=== PATIENT | female | born 1955 | race Hispanic/Latino ===

== ENCOUNTER 2017-08-15 18:27 | Emergency (ER) | payer SELFPAY ==
[2017-08-15] MEDS ORDERED: DEXAMETHASONE SOD PHOSPHATE 10MG/ML 1ML VIAL ONE (18:57)
== END 2017-08-15 19:27 | disposition home or self-care (01) ==
LOC: EDH 18:27
DX: T78.49XA Other allergy, initial encounter (principal); E78.5 Hyperlipidemia, unspecified; E11.9 Type 2 diabetes mellitus without complications; Z90.710 Acquired absence of both cervix and uterus; Z90.49 Acquired absence of other specified parts of digestive tract; Z72.0 Tobacco use; X58.XXXA Exposure to other specified factors, initial encounter
CPT/HCPCS: 96372; 99283; J1100

== ENCOUNTER 2023-10-19 10:39 | Emergency (ER) | payer OTHER ==
[~2023-10-19] VITALS: Ht 157.5 cm; Wt 58.5 kg
[2023-10-19] MEDS: LIDOCAINE HCL 2% VISCOUS 15 ML UDCUP PO ONE (13:11)
[2023-10-19] MEDS: FLUCONAZOLE 100 MG TAB PO ONE (13:12)
[2023-10-19] MEDS: KETOROLAC 60 MG VIAL (30MG/ML) IM ONE (13:12)
[2023-10-19 13:25] VITALS: BP 116/65; PULSE 72; RESP 16; O2SAT 99
== END 2023-10-19 13:28 | disposition home or self-care (01) ==
LOC: EDH 10:39
DX: S00.522A Blister (nonthermal) of oral cavity, initial encounter (principal); I10 Essential (primary) hypertension; E11.9 Type 2 diabetes mellitus without complications; E78.00 Pure hypercholesterolemia, unspecified; Z90.49 Acquired absence of other specified parts of digestive tract; Z90.89 Acquired absence of other organs; Z90.710 Acquired absence of both cervix and uterus; Z98.890 Other specified postprocedural states; X58.XXXA Exposure to other specified factors, initial encounter; Y93.89 Activity, other specified; Y92.89 Other specified places as the place of occurrence of the external cause; Y99.8 Other external cause status
CPT/HCPCS: 99283; 96372; J1885

== ENCOUNTER 2024-06-01 20:57 | Emergency (ER) | payer OTHER ==
[~2024-06-01] VITALS: Ht 157.5 cm; Wt 61.7 kg
[2024-06-01] MEDS: metoCLOPRAmide 10 MG/2 ML VIAL IVP ONE (22:27)
[2024-06-01] MEDS: 0.9%NACL 1000ML 1,000 ML IV ONE (22:27)
[2024-06-01] MEDS: DiphenhydrAMINE HCL 50 MG/ML VIAL IV ONE (22:27)
[2024-06-01] MEDS: acetaMINOPHEN 500 MG TABLET PO ONE (22:27)
--- NOTE | 2024-06-01 22:45 | HMCIMG ---
CT HEAD/BRAIN W/O CONTRAST HISTORY: Headaches COMPARISON: None TECHNIQUE: Multiple sequential axial images of the head were obtained from the base of the skull through vertex. Patient was not given contrast through intravenous route. FINDINGS: The ventricles and extraventricular CSF spaces are nondilated for patient's age. There is no midline shift, mass effect or herniation. No acute intracranial bleed is seen. Visualized portion of the paranasal sinuses are grossly within normal limits. IMPRESSION: 1. No acute intracranial bleed is seen. CT was performed with one or more following dose reduction techniques: automated exposure control, adjustment of the mA and kv according to patient's size, or use of a iterative reconstruction technique.
[2024-06-01 22:49] LABS: BASOPHILS # (AUTO) 0.07 K/uL (0.00-0.20); BASOPHILS % (AUTO) 0.9 % (0.0-5.0); EOSINOPHILS # (AUTO) 0.06 K/uL (0.00-0.70); EOSINOPHILS % (AUTO) 0.7 % (0.0-8.0); IMMATURE GRANULOCYTE ABSOLUTE 0.07 K/uL (0-1); LYMPHOCYTES # (AUTO) 1.7 K/uL (1.0-4.8); LYMPHOCYTES % (AUTO) 21.5 % (21.0-51.0); MEAN CORPUSCULAR HEMOGLOBIN 28.1 pg (27.0-33.0); MEAN CORPUSCULAR HGB CONC 33.5 g/dL (32.0-36.0); MONOCYTES # (AUTO) 0.5 K/uL (0.1-1.0); MONOCYTES % (AUTO) 5.7 % (3.0-13.0); NEUTROPHILS # (AUTO) 5.7 K/uL (1.8-7.7); NEUTROPHILS % (AUTO) 70.3 % (40.0-77.0); PLATELET COUNT (AUTO) 201 K/uL (130-400); RED BLOOD CELL COUNT(AUTO) 4.05 MIL/uL (4.00-5.50)
[2024-06-01 22:58] LABS: CREATININE 0.6 mg/dL (0.5-1.0); POTASSIUM 3.4 mmol/L (3.5-5.1)
--- NOTE | 2024-06-01 23:56 | ERN ---
General Chief Complaint: Headache Stated Complaint: VOMITTING,HEAD PAIN Time Seen by MD: 22:14 Time Seen by Midlevel: 22:14 Source: patient History of Present Illness Initial Comments Patient is a 69-year-old female with a past medical history of hyperlipidemia, hypertension, and type 2 diabetes presenting to the emergency department with a left-sided occipital headache that started prior to arrival. Patient states she had woken up from a nap when she noticed the headache. This was followed by dry heaving and one episode of vomiting while in route to the ER. Denies any focal weakness, numbness, tingling, facial droop, or any other symptoms at this time. She does report starting Ozempic yesterday. Denies any fall or direct injury to the head. Allergies: Coded Allergies: No Known Allergies (Unverified Allergy, Unknown, 10/19/23) Past Medical History Past Medical History: Diabetes-Type II, Hypertension Past Surgical History: None Surgical History Other: EAR ROS Dictation CONSTITUTIONAL: Negative except for HPI HEAD/FACE: Negative except for HPI EENT: Negative except for HPI RESPIRATORY: Negative except for HPI GASTROINTESTINAL/ABDOMINAL: Negative except for HPI GENITOURINARY: Negative except for HPI MUSCULOSKELETAL: Negative except for HPI INTEGUMENTARY: Negative except for HPI NEUROLOGICAL/PSYCH: Negative except for HPI HEMATOLOGIC/LYMPHATIC: Negative except for HPI All Systems Negative, Except as noted above. 13 point review of systems assessed and all negative except for above. Physical Exam Physical Exam Dictation Vital Signs reviewed General Appearance: Alert, oriented x 3, no acute distress, well developed, nourished. Head and Face: non-traumatic. Eyes: PERRL, pink conjunctivas, eyelid no trauma, anterior chamber with arcus senilis. Ears: Pinnas intact and no signs of trauma or erythema ear canals clear and no discharge TM no erythema Nose: No discharge, no bleeding. Oropharynx: Mouth normal, tongue pink, pharynx clear,no erythema, tonsils no exudates, no abscesses noted, mucous membrane moist Neck: Supple, non-tender, no thyromegaly, no masses, no JVD, no bruits Breast:Deferred Chest:No tenderness, no crepitus, no paradoxical movement, no retractions Lungs:Clear, well-ventilated, symmetric, no rales, no wheezing, no rhonchi, no stridor, good breath sounds bilaterally Heart: Regular rate, regular rhythm, no murmur, no gallops Vascular: no peripheral edema, Abdomen: Soft, positive bowel sounds, nondistended, no guarding, nontender, no rebound, no masses no hepatomegaly, no splenomegaly, no Martinez's sign, no hernias. Rectal: Deferred Genital: Deferred Neurological: Normal speech, motor function intact, sensory function intact Musculoskeletal: Neck nontender, full range of motion, back nontender, full range of motion, Extremities: nontender, full range of motion Skin: Color pink, dry, no turgor, no rash, no lacerations, no abrasions, no contusions. Lymphatic: Deferred Results Laboratory and Microbiology Lab and Micro Result Laboratory Tests Test 06/01/24 22:38 White Blood Count 8.0 K/uL (4.8-10.8) Red Blood Count 4.05 MIL/uL (4.00-5.50) Hemoglobin 11.4 g/dL (12.0-16.0) L Hematocrit 34.0 % (36-48) L Mean Corpuscular Volume 84.0 fL (79-99) Mean Corpuscular Hemoglobin 28.1 pg (27.0-33.0) Mean Corpuscular Hemoglobin Concent 33.5 g/dL (32.0-36.0) Red Cell Distribution Width 13.0 % (11.0-15.5) Platelet Count 201 K/uL (130-400) Mean Platelet Volume 9.5 fL (7.5-10.5) Immature Granulocyte % (Auto) 0.9 % (0-1) Neutrophils (%) (Auto) 70.3 % (40.0-77.0) Lymphocytes (%) (Auto) 21.5 % (21.0-51.0) Monocytes (%) (Auto) 5.7 % (3.0-13.0) Eosinophils (%) (Auto) 0.7 % (0.0-8.0) Basophils (%) (Auto) 0.9 % (0.0-5.0) Neutrophils # (Auto) 5.7 K/uL (1.8-7.7) Lymphocytes # (Auto) 1.7 K/uL (1.0-4.8) Monocytes # (Auto) 0.5 K/uL (0.1-1.0) Eosinophils # (Auto) 0.06 K/uL (0.00-0.70) Basophils # (Auto) 0.07 K/uL (0.00-0.20) Absolute Immature Granulocyte (auto 0.07 K/uL (0-1) Nucleated Red Blood Cells 0.0 % (0.0-0.19) Sodium Level 138 mmol/L (136-145) Potassium Level 3.4 mmol/L (3.5-5.1) L Chloride Level 102 mmol/L (101-111) Carbon Dioxide Level 29 mmol/L (21-32) Blood Urea Nitrogen 13 mg/dL (7-18) Creatinine 0.6 mg/dL (0.5-1.0) Glomerular Filtration Rate Calc 97 mL/min (>90) Random Glucose 160 mg/dL (70-105) H Total Calcium 8.6 mg/dL (8.5-10.1) Labs Reviewed?: Yes MDM MDM: Patient is a 69-year-old female with a past medical history of hyperlipidemia, hypertension, and type 2 diabetes presenting to the emergency department with a left-sided occipital headache that started prior to arrival. Patient states she had woken up from a nap when she noticed the headache. This was followed by dry heaving and one episode of vomiting while in route to the ER. Denies any focal weakness, numbness, tingling, facial droop, or any other symptoms at this time. She does report starting Ozempic yesterday. Denies any fall or direct injury to the head. On physical examination the patient is in no acute distress. Her neurological examination is unremarkable. GCS 15. Patient was ambulatory without assistance and with a normal gait. No facial droop noted. Cranial nerves are intact. Given her persistent headache patient was started on a migraine cocktail and a CT scan of the head was ordered. CT scan does not show any intracranial abnormalities. Her CBC and chemistries unremarkable. CBC shows no leukocytosis or thrombocytopenia. Chemistries reveal a normal creatinine and electrolytes. On repeat examination the patient does report feeling improved. Her repeat neurological examination has remained unchanged. We will give a dose of Toradol and will discharged home with strict return precautions. The patient is agreeable with this plan and all questions have been answered. Differential diagnosis: Migraine headache, muscle strain, intracranial bleed There are no social concerns with this patient. Prescription drug management Prescriptions will include: None Medical management and examination interpretation discussions were had by me with other qualified healthcare professionals as indicated for the patient's care. ED Course Orders Procedure Category Date Status Time Cbc With Differential LAB 06/01/24 Complete 22:08 Basic Metabolic Panel LAB 06/01/24 Complete 22:08 Acetaminophen 500mg PHA 06/01/24 Complete Tab (Tylenol 500mg T 22:30 Metoclopramide 10 PHA 06/01/24 Complete Mg/2 Ml Vial (Reglan 1 22:30 Diphenhydramine Hcl PHA 06/01/24 Complete (Benadryl Inj) 22:30 Ct Head/Brain W/O CT 06/01/24 Resulted Contrast 22:08 0.9%Nacl 1000ml (Ns PHA 06/01/24 Complete 1000ml) 22:30 Ketorolac PHA 06/02/24 In Process Tromethamine 15mg/Ml 00:00 Current Medications Medications (Trade) Dose Ordered Sig/Tj Route PRN Reason Start Time Stop Time Status Last Admin Dose Admin Acetaminophen (TYLenol 500MG TAB) 1,000 mg ONCE ONCE PO 06/01/24 22:30 06/01/24 22:31 DC 06/01/24 22:27 Diphenhydramine HCl (BENAdryl INJ) 25 mg ONCE ONCE IV 06/01/24 22:30 06/01/24 22:31 DC 06/01/24 22:27 Ketorolac Tromethamine (toRADol) 15 mg ONCE ONCE IV 06/02/24 00:00 06/02/24 00:01 Metoclopramide HCl (regLAN 10MG IV) 10 mg ONCE ONCE IVP 06/01/24 22:30 06/01/24 22:31 DC 06/01/24 22:27 Sodium Chloride 1,000 ml @ 0 mls/hr ONCE ONCE IV 06/01/24 22:30 06/01/24 22:31 DC 06/01/24 22:27 Vital Signs Date Time Temp Pulse Resp B/P (MAP) Pulse Ox O2 Delivery O2 Flow Rate FiO2 06/01/24 21:42 98.1 72 20 153/84 99 Room Air* 0 21 06/01/24 21:26 98.1 72 20 153/84 99 Room Air [place] [address] [address] IMAGING REPORT Signed PATIENT: TOMI LUNA MR#: [id number] : 1955 SEX: F AGE: 69 LOCATION: ED ORDER 09 STATUS: [facility] ER REPORT#: [id number] SERVICE 07 REASON: headache, nausea ORDERING PHYSICIAN: SHAHIDA ESTRADA PROCEDURE: HEAD WO - CT HEAD/BRAIN W/O CONTRAST CT HEAD/BRAIN W/O CONTRAST HISTORY: Headaches COMPARISON: None TECHNIQUE: Multiple sequential axial images of the head were obtained from the base of the skull through vertex. Patient was not given contrast through intravenous route. FINDINGS: The ventricles and extraventricular CSF spaces are nondilated for patient's age. There is no midline shift, mass effect or herniation. No acute intracranial bleed is seen. Visualized portion of the paranasal sinuses are grossly within normal limits. IMPRESSION: 1. No acute intracranial bleed is seen. CT was performed with one or more following dose reduction techniques: automated exposure control, adjustment of the mA and kv according to patient's size, or use of a iterative reconstruction technique. DICTATED BY: VELIA WINTER MD DATE: 06/01/242235 ELECTRONICALLY SIGNED BY: VELIA WINTER MD DATE: 06/01/242244 DX & DISP Disposition: Discharge Departure Impression: Primary Impression: Headache, unspecified Condition: Stable Additional Instructions: Your blood work today is unremarkable. Your CT scan of the head is normal. Please follow up with your primary care doctor in 2-3 days for repeat evaluation. Return to the ER for any new or worsening symptoms Referrals: JACEK AG MD (PCP) Time of Disposition: 23:56 I have reviewed the case, and I agree with, Diagnosis and Plan I performed the substantive portion of the visit. I have reviewed and personally made and approve the management plan that is documented in the note by myself or the ALLIE. I acknowledge for responsibility for the patient's management plan. JACEK CHRISTINE Jun 01, 2024 23:56
[2024-06-02] MEDS: ketOROlac 15MG/ML VIAL (15MG/ML) IV ONE (00:11)
[2024-06-02 00:34] VITALS: BP 140/79; PULSE 70; RESP 18; TEMP 98.1; O2SAT 99
== END 2024-06-02 00:35 | disposition home or self-care (01) ==
LOC: EDH 20:57
DX: R51.9 Headache, unspecified (principal); R11.2 Nausea with vomiting, unspecified; E11.9 Type 2 diabetes mellitus without complications; I10 Essential (primary) hypertension; E78.5 Hyperlipidemia, unspecified
CPT/HCPCS: 99285; 96374; 70450; 96361; 96375 ×2; 80048; 85025; 36415; J1200; J7030; J2765; J1885

== ENCOUNTER 2024-12-30 20:31 | Emergency (ER) | payer OTHER ==
[~2024-12-30] VITALS: Ht 157.5 cm; Wt 63.5 kg
--- NOTE | 2024-12-30 21:06 | ERN ---
ED Note History of Present Illness Stated Complaint: C/O PAIN TO BUTTOCKS AFTER FALL Chief Complaint: Mechanical Fall Time Seen by MD: 20:36 Time Seen by Midlevel: 20:40 Dictation: 69-year-old female with a history of hypertension coming in complaining of lower back pain status post ground level fall. Patient states she slipped in his added on her buttocks. Denies any head injury. No LOC. No blood thinners. Allergies: Coded Allergies: No Known Allergies (Unverified Allergy, Unknown, 10/19/23) Past Medical History Past Medical History: Diabetes-Type II, High Cholesterol, Hypertension Surgical History: None Surgical History Other: EAR Review of System Dictation Constitutional: Negative for fever,chills, and weight loss Eyes: Negative for injury, pain,redness, and discharge ENT: Negative for injury,pain or swelling Cardiovascular: Negative for chest pain, palpitations, and edema Respiratory: Negative for shortness of breath, cough, and wheezing, Abdomen/GI: Negative for abdominal pain, nausea, vomiting, diarrhea, and constipation Back: Complaining of lower back pain : Negative for injury, bleeding and discharge MS/Extremity: Negative for injury and deformity Skin: Negative for rash, and discoloration Neuro: Negative for headache, weakness, numbness, tingling, and seizure Psych: Negative for suicide ideation, homicidal ideation, and hallucinations Review of Systems: was completed Initial Vital Sign VS Vital Signs Date Time Temp Pulse Resp B/P (MAP) Pulse Ox O2 Delivery O2 Flow Rate FiO2 12/30/24 20:33 98.1 69 20 112/49 99 Room Air 12/30/24 21:08 0 21 Physical Exam Dictation General: awake, alert, NAD Head/Face: Normocephalic, atraumatic Eyes: PERRL, EOMI, vision at baseline ENT: oral cavity clear, TMs clear, no signs of infection Neck: Trachea midline, supple, no nuchal rigidity Cardiovascular: RRR, normal S1/S2, No MRGs, no JVD Respiratory: CTAB, no respiratory distress, No rales or wheezes Abdomen: Soft, non-tender, non-distended, normal bowel sounds, no guarding or rebound. Skin: Warm, dry, normal turgor, no rash MS/Extremity: Pulses equal, no cyanosis, neurovascular intact, FROM pain on palpation to the lower back along the L-spine Neuro: COAx4, GCS 15, strength 5/5, CN 2-12 intact, normal cerebellar exam, normal gait, Psych: Normal behavior, mood, and affect normal ED Course ED Course Orders Procedure Category Date Status Time Lumbar Spine 2-3vws RAD 12/30/24 Taken 20:39 Sacrum/Coccyx 2+Vws RAD 12/30/24 Taken 20:39 Pelvis 1-2vws RAD 12/30/24 Taken 20:39 Tramadol Hcl (Ultram) PHA 12/30/24 Complete 20:40 Current Medications Medications (Trade) Dose Ordered Sig/Tj Route PRN Reason Start Time Stop Time Status Last Admin Dose Admin Tramadol HCl (UltRAM) 50 mg ONCE STAT PO 12/30/24 20:40 12/30/24 20:47 DC 12/30/24 21:28 Vital Signs Date Time Temp Pulse Resp B/P (MAP) Pulse Ox O2 Delivery O2 Flow Rate FiO2 12/30/24 21:08 98.1 69 20 112/49 99 Room Air* 0 21 12/30/24 20:33 98.1 69 20 112/49 99 Room Air Medical Decision Making MDM MDM: 69-year-old female with a history of hypertension coming in complaining of lower back pain status post ground level fall. Patient states she slipped in his landed on her buttocks. Denies any head injury. No LOC. No blood thinners. Denies any numbness, tingling, weakness, incontinence, urinary retention. X- rays were reviewed by myself and ER MD. No acute findings only arthritic changes. Patient will be discharged to follow up outpatient. Educated patient that she can take Tylenol [id number] or ibuprofen for pain control. Educated on signs and symptoms of when to return back to the ER. Patient verbalized understanding, answered all questions. Differential diagnosis: L-spine injury, compression fracture, muscle sprain Rationale: Tests considered and ordered secondary to shared decision making include: Previous outside records reviewed: Old ER visits. Risk of complication and/or morbidity or mortality of patient management: None Medications-Per medication reconciliation Need for hospitalization: Patient does not meet criteria for hospitalization. Need for emergency major/minor surgery: No There are no social concerns with this patient. Prescription drug management Prescriptions will include symptomatic care Patient's prior external medical records from other ER visits were reviewed by me as indicated. Prior testing and results from previous visits were reviewed. Prior tests were taken into account with medical decision making and resource utilization, independent historian/historians were used to obtain complete medical history. I independently interpreted the test that were performed, results were reviewed by me and considered findings on radiology if ordered. Medical management and examination interpretation discussions were had by me with other qualified healthcare professionals as indicated for the patient's care. DX & DISP Disposition: Discharge Departure Impression: Primary Impression: Back pain Condition: Stable Additional Instructions: Take Tylenol or Motrin [id number] for pain control. If you develop any numbness, tingling, weakness or incontinence please return back to the emergency room. Otherwise follow up with the primary care provider in 1-2 days. Referrals: JACEK AG MD (PCP) Time of Disposition: 21:58 I have reviewed the case, and I agree with, Diagnosis and Plan MIESHA VILLALPANDO NP Dec 30, 2024 21:06
[2024-12-30 22:08] VITALS: BP 122/57; PULSE 62; RESP 20; TEMP 98.1; O2SAT 99
--- NOTE | 2024-12-30 22:14 | HMCIMG ---
EXAM: CR Sacrum and Coccyx, 2 views. CLINICAL HISTORY: Pain. COMPARISON: None provided. FINDINGS: No acute fracture or aggressive appearing osseous lesion. Normal alignment. Mild osteopenia. 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 The soft tissues are unremarkable. IMPRESSION: No acute bony abnormality is evident. Mild osteopenia and degenerative changes. /[place]
--- NOTE | 2024-12-30 22:21 | HMCIMG ---
EXAM: CR Lumbar Spine, 3 views CLINICAL HISTORY: Fall. COMPARISON: None provided. FINDINGS: Lumbar alignment is within normal limits. Mild osteopenia. Mild spondylosis and degenerative disc space narrowing at multiple levels. Normal vertebral body heights. No acute fracture. Soft tissues are within normal limits. IMPRESSION: No acute fracture. Mild osteopenia. Mild spondylosis and degenerative disc space narrowing at multiple levels. /[place]
--- NOTE | 2024-12-30 22:23 | HMCIMG ---
EXAM: CR Pelvis, 1 view CLINICAL HISTORY: Fall. COMPARISON: None provided. FINDINGS: No acute fracture or aggressive appearing osseous lesion. Mild osteopenia. 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 The soft tissues are unremarkable. IMPRESSION: No acute bony abnormality is evident. Mild osteopenia. 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 /[place]
== END 2024-12-30 22:09 | disposition home or self-care (01) ==
LOC: EDH 20:31
DX: M54.50 Low back pain, unspecified (principal); E11.9 Type 2 diabetes mellitus without complications; E78.00 Pure hypercholesterolemia, unspecified; I10 Essential (primary) hypertension; W18.39XA Other fall on same level, initial encounter; Y93.89 Activity, other specified; Y92.89 Other specified places as the place of occurrence of the external cause; Y99.8 Other external cause status
CPT/HCPCS: 72100; 72170; 72220; 99284